=== PATIENT | male | born 1950 | race Caucasian/White ===

== ENCOUNTER 2016-06-17 16:31 | Emergency (ER) | payer OTHER ==
[2016-06-17 16:39] VITALS: BP 133/81; PULSE 78; TEMP 98.3; BMI 22.7
--- NOTE | 2016-06-17 16:44 | PDOC ---
History of Present Illness - General History Source: Patient Exam Limitations: No Limitations - History of Present Illness Initial Comments: 06/17/16 16:46 Patient is a 65 year old male with a significant past medical history of Parkinsons disease, hypertension and hyperlipidemia who presents to the ED with a left toe pain approximately 2 hours ago. Patient states that he dropped a drawer on his left foot and reports left 3rd digit pain and bruising. Patient notes that he is able to ambulate barefoot without any pain, but when he wears a shoe he experiences pain. He states that he took 2 advil to alleviate the pain. He denies any recent fall or trauma. PSH - none Allergy - none <Maria Victoria Mirza - Last Filed: 06/17/16 16:53> - General History Source: Patient Exam Limitations: No Limitations <Lilly Hurtado - Last Filed: 06/17/16 17:30> - General Chief Complaint: Injury Stated Complaint: INJURY TO LEFT 3 RD TOE Time Seen by Provider: 06/17/16 16:41 Past History <Maria Victoria Mirza - Last Filed: 06/17/16 16:53> - Past Medical History Cardiac Disorders: Yes (MVP/ARRYTHMIA) Hypercholesterolemia: Yes - Psycho/Social/Smoking Cessation Hx Anxiety: No Suicidal Ideation: No Smoking History: Former smoker Have you smoked in the past 12 months: No If you are a former smoker, when did you quit?: 1973 Information on smoking cessation initiated: No Hx Alcohol Use: No Drug/Substance Use Hx: No Substance Use Type: None <Lilly Hurtado - Last Filed: 06/17/16 17:30> - Past Medical History Allergies/Adverse Reactions: Allergies Allergy/AdvReac Type Severity Reaction Status Date / Time No Known Allergies Allergy Verified 06/17/16 16:33 Home Medications: Ambulatory Orders Aspirin [ASA -] 81 mg PO DAILY 06/17/16 Atorvastatin Ca [Lipitor] 20 mg PO HS 06/17/16 Metoprolol Tartrate 50 mg PO DAILY 06/17/16 Rasagiline Mesylate 1 mg PO DAILY 06/17/16 Review of Systems - Review of Systems Able to Perform ROS?: Yes Comments:: 06/17/16 16:53 GENERAL/CONSTITUTIONAL: No: fever, chills, weakness, loss of appetite. HEAD, EYES, EARS, NOSE AND THROAT: No: change in vision, ear pain, discharge, sore throat, throat swelling. CARDIOVASCULAR: No: chest pain, lightheadedness, palpitations, syncope RESPIRATORY: No: cough, shortness of breath, wheezing, hemoptysis, stridor. GASTROINTESTINAL: No: nausea, vomiting, abdominal cramping, diarrhea, rectal bleeding, constipation. GENITOURINARY: No: dysuria, hematuria, frequency, urgency, flank pain. MUSCULOSKELETAL: +left 3rd digit bruising No: back pain, neck pain, joint pain, muscle swelling or pain SKIN: No: lesions, pallor, rash or easy bruising. NEUROLOGIC: No: headache, vertigo, paresthesias, weakness ENDOCRINE: No: unexplained weight gain or loss HEMATOLOGIC/LYMPHATIC: No: anemia, easy bleeding, swelling nodes <Maria Victoria Mirza - Last Filed: 06/17/16 16:53> *Physical Exam - Vital Signs Last Vital Signs Temp Pulse Resp BP Pulse Ox 98.3 F 78 18 133/81 98 06/17/16 16:32 06/17/16 16:32 06/17/16 16:32 06/17/16 16:32 06/17/16 16:32 - Physical Exam Comments: 06/17/16 16:54 GENERAL: The patient is in no acute distress. HEAD: Normal with no signs of trauma. EYES: PERRLA, EOMI, sclera anicteric, conjunctiva clear. ENT: Ears normal, nares patent, oropharynx clear without exudates. Moist mucous membranes. NECK: Normal range of motion, supple without lymphadenopathy, JVD, or masses. LUNGS: Breath sounds equal, clear to auscultation bilaterally. No wheezes, and no crackles. HEART:Regular rate and rhythm, normal S1 and S2 without murmur, rub or gallop. ABDOMEN: Soft, nontender, normoactive bowel sounds. No guarding, no rebound. EXTREMITIES: +left third digit bruising and swelling. Normal range of motion. No clubbing or cyanosis. No erythema, or tenderness. NEUROLOGICAL: Cranial nerves II through XII grossly intact. Normal speech. No focal neurological deficits. MUSCULOSKELETAL: Back nontender to palpation, no CVA tenderness SKIN: Warm, Dry, normal turgor, no rashes or lesions noted. <Maria Victoria Mirza - Last Filed: 06/17/16 16:53> - Vital Signs Last Vital Signs Temp Pulse Resp BP Pulse Ox 98.3 F 78 18 133/81 98 06/17/16 16:32 06/17/16 16:32 06/17/16 16:32 06/17/16 16:32 06/17/16 16:32 <Lilly Hurtado - Last Filed: 06/17/16 17:30> Medical Decision Making - Medical Decision Making 06/17/16 16:41 A portion of this note was documented by scribe services under my direction. I have reviewed the details of the note, within reason, and agree with the documentation with the following case summary and management plan written by me. Nursing documentation reviewed and incorporated into medical decision making 65 yo M h/o Parkinson's disease, HTN HLD presenting to the ER with a complaint of trauma to his left middle toe He dropped a cabinet on his toe Took Motrin Presented to the ER due to concerns about a fracture Will do x ray Pt states he does not need any additional medications for pain 06/17/16 17:27 Xray: distal tuft fracture Will ce tape Will place in hard sole shoe Follow up with ortho PRN <Lilly Hurtado - Last Filed: 06/17/16 17:30> *DC/Admit/Observation/Transfer - Attestations Scribe Attestion: 06/17/16 16:55 Documentation prepared by KIRILL Davila, acting as phlebotomist medical lab assistant for Lilly Hurtado MD. <Maria Victoria Mirza - Last Filed: 06/17/16 16:53> - Discharge Dispostion Admit: No <Lilly Hurtado - Last Filed: 06/17/16 17:30> Diagnosis at time of Disposition: Fracture of phalanx of toe of left foot Qualifiers: Encounter type: initial encounter Toe: lesser toe Fracture type: closed Phalanx : distal Fracture alignment: nondisplaced Qualified Code(s): S92.535A - Nondisplaced fracture of distal phalanx of left lesser toe(s), initial encounter for closed fracture - Discharge Dispostion Disposition: HOME Condition at time of disposition: Stable - Referrals Referrals: Curry Wang MD [Staff Physician] - - Patient Instructions Printed Discharge Instructions: DI for Toe Fracture Additional Instructions: Thank you for coming in to the ER please wear a hard sole shoe as is tolerable for you please ce take injured toe to the toe next to it Return to the ER for any other concerns or complaints
== END 2016-06-17 17:55 | disposition home or self-care (01) ==
LOC: FER 16:31
PROC: 2W3TXYZ Immobilization of Left Foot using Other Device (ICD-10-PCS; principal; 2016-06-17)
DX: S92.535A Nondisplaced fracture of distal phalanx of left lesser toe(s), initial encounter for closed fracture (principal); W20.8XXA Other cause of strike by thrown, projected or falling object, initial encounter; Y93.9 Activity, unspecified; Y92.9 Unspecified place or not applicable; I08.8 Other rheumatic multiple valve diseases; Z87.891 Personal history of nicotine dependence; Z79.82 Long term (current) use of aspirin
CPT/HCPCS: 29550; 73660-TC; 99281-25

== ENCOUNTER 2017-10-23 09:36 | Emergency (ER) | payer OTHER ==
--- NOTE | 2017-10-23 09:38 | PDOC ---
History of Present Illness - General Chief Complaint: Back Pain Stated Complaint: SCIATICA Time Seen by Provider: 10/23/17 09:38 History Source: Patient Exam Limitations: No Limitations - History of Present Illness Initial Comments: 10/23/17 09:53 67 year old male with PMH parkinsons disease, HTN, HLD, sciatica, arrythmia, prolpased valve presenting to ED for right leg pain x1 week. He states that a week ago he woke up with this pain, that feels similar to his sciatica pain, but more intense. He denies heavy lifting, fall, injury. He states the pain is currently located to his right lateral thigh and right anterior lower leg. He describes the pain as intermittent, alleviated by ice packs/rest, alleviated by Tylenol with Codeine and Advil, aggravated by movement, described as sharp, radiating to his right foot. He denies fever, chills, nausea, vomiting, abdominal pain, diarrhea, blood in stool, chest pain, shortness of breath, weakness, numbness, tingling, bowel or bladder incontinence. Pt states he took 2 over the counter advil and tylenol with codeie today around 0800. Pt states he sits in a chair all day at a computer. PCP - Dr. Trinidad Allergies - NKDA Past History - Past Medical History Allergies/Adverse Reactions: Allergies Allergy/AdvReac Type Severity Reaction Status Date / Time No Known Allergies Allergy Verified 10/23/17 09:38 Home Medications: Ambulatory Orders Aspirin [ASA -] 81 mg PO DAILY 06/17/16 Atorvastatin Ca [Lipitor] 20 mg PO HS 06/17/16 Acetaminophen W/ Codeine #3 [Tylenol # 3 -] 0.5 tab PO ONCE 10/23/17 Carbidopa/Levodopa [Carbidopa-Levodopa 25-100 Tab] 0.5 tab PO TID 10/23/17 Carbidopa/Levodopa [Sinemet Cr 25-100 Tablet] 1 each PO TID 10/23/17 Cyclobenzaprine HCl [Flexeril 10 mg] 10 mg PO TID #15 tablet 10/23/17 Ibuprofen 800 mg PO TID #15 tablet 10/23/17 Ibuprofen [Advil -] 400 mg PO TID PRN 10/23/17 Isradipine 2.5 mg PO BID 10/23/17 Metoprolol Succinate [Toprol Xl] 50 mg PO DAILY 10/23/17 Cardiac Disorders: Yes (MVP/ARRYTHMIA) Hypercholesterolemia: Yes - Suicide/Smoking/Psychosocial Hx Smoking History: Former smoker Have you smoked in the past 12 months: No If you are a former smoker, when did you quit?: 1973 Hx Alcohol Use: No Drug/Substance Use Hx: No Substance Use Type: None Review of Systems - Review of Systems Able to Perform ROS?: Yes Comments:: 10/23/17 09:57 General: denies fever, chills, night sweats, generalized weakness. HEENT: denies sore throat, rhinorrhea, ear pain. Heart: denies chest pain, palpitations, syncope, lower extremity swelling, diaphoresis. Respiratory: denies shortness of breath, cough, sputum production, hematemesis. Abdomen: denies abdominal pain, nausea, vomiting, diarrhea, constipation, blood in stool, bowel incontinence. : denies dysuria, increased urinary frequency, hematuria, urinary incontinence , flank pain. Musculoskeletal: admits to right lateral thigh pain and right anterior lower leg pain. Neurological: denies headache, dizziness, numbness, tingling, weakness. Skin: denies rash, laceration, abrasion. *Physical Exam - Physical Exam Comments: 10/23/17 09:58 Appearance: comfortable. HEENT: head is normocephalic, atraumatic. EOMI. PERRLA. Neck: supple. Full ROM. Heart: regular rhythm. murmur noted. Lungs: clear to auscultation bilaterally. no crackles, rhonchi or wheezing. no stridor. Abdomen: soft, nontender. normal bowel sounds. no rebound, guarding, masses. Rectal examination: no external hemorroids visualized. good rectal tone. Back: no c-spine mindline tenderness to palpation. no t-spine mindline tenderness to palpation. no L-spine mindline tenderness to palpation. no low back tenderness to palpation bilaterally. no step offs. straight leg testing negative bilaterally. Extremities: no tenderness to palpation of right lateral thigh, right anterior corbett. no swelling to right lower extremity. Peripheral pulses intact and equal. No lower extremity pitting edema. Neurological: Alert. Oriented x3. CN2-12 intact. 5/5 strength all extremities. Full sensation all extremities and bilateral face. Gait normal. Resting tremor to right upper extremity. Medical Decision Making - Medical Decision Making 10/23/17 10:58 67 year old male with PMH parkinsons, HTN, HLD, valve prolapse, cardiac arrythmia presenting to ED for right lateral thigh pain and right anterior lower leg pain x1 week. Initial Vital Signs Temp Pulse Resp BP Pulse Ox 98.4 F 57 L 16 154/93 99 10/23/17 09:38 10/23/17 09:38 10/23/17 09:38 10/23/17 09:38 10/23/17 09:38 Afebrile. Toradol ordered. 10/23/17 11:27 Pt endorsing continued pain. Flexeril ordered. I spoke with the patient and his about the plan for care, with which they agree. Pt will be discharged with follow up instructions, orthopedic referral, prescriptions for Flexeril and Ibuprofen, as well as strict return precautions. 10/23/17 12:01 Upon discharge, pt endoursed increased pain. Ativan ordered. Will reassess. 10/23/17 12:41 Pt reported improved pain and stated he would like to go home. Pt left the department and is discharged. *DC/Admit/Observation/Transfer Diagnosis at time of Disposition: Leg pain - Discharge Dispostion Disposition: HOME Condition at time of disposition: Good Decision to Admit order: No - Prescriptions Prescriptions: Cyclobenzaprine HCl [Flexeril 10 mg] 10 mg PO TID #15 tablet Ibuprofen 800 mg PO TID #15 tablet - Referrals Referrals: Leola Freire MD [Primary Care Provider] - Curry Wang MD [Staff Physician] - - Patient Instructions Printed Discharge Instructions: DI for Sciatica Additional Instructions: You were seen today for your leg pain. You were given intra-muscular Toradol (an anti-inflammatory). You were given Flexeril (a muscle relaxant). I have sent a prescription for Flexeril and Ibuprofen to your pharmacy. Take both prescriptions as directed. You can add Tylenol for pain. Do not take ibuprofen and naproxen (Advil) at the same time. Drink lots of clear fluids, like water, to stay hydrated. I have provided you with a referral for an orthopedic doctor, Dr. Wang. Follow up within 5 days. Call the office today and request an appointment for as soon as they have available. Mention to them you were seen in the Emergency Department and referred to them. Follow up with your primary care doctor within 5 days, call their office today and request an appointment for as soon as they have available. Mention to them you were seen in the Emergency Department. Return to the Emergency Department for increasing pain, feeling like you may pass out, passing out, abdominal pain, blood in stool, blood in urine, numbness , weakness, chest pain, shortness of breath, palpitations, burning with urination, fever or any other new, worsening or concerning symptoms. - Post Discharge Activity
--- NOTE | 2017-10-23 09:45 | PDOC ---
Attending Attestation - Resident Resident Name: BrionnaCarmina - ED Attending Attestation I have performed the following: I have examined & evaluated the patient, The case was reviewed & discussed with the resident, I agree w/resident's findings & plan, Exceptions are as noted - HPI HPI: 10/23/17 10:39 Patient has a flareup of his sciatica, which occurs frequently, but this time is more persistent. No back pain but shooting pain radiating to the right buttock, lateral thigh and calf, and lateral foot. Urinating normally, chronic constipation from Parkinson's, and no change in his bowel or bladder function with this flareup. 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 This may be the aggravating factor. He has been taking 2 [id number] Advil without relief. Also Tylenol No. 3 occasionally with minimal effect. - Physicial Exam PE: 10/23/17 10:41 Physical exam shows resting tremor, mild muscular rigidity, and shuffling gait associated with Parkinson's. There are no acute sensory or motor deficits to the right lower extremity, and straight leg raising is negative. Pulses are full. Femoral artery with symmetric pulses and no bruits. Abdominal exam benign. No hernias. No saddle anesthesia and adequate rectal tone. 10/23/17 10:42 - Medical Decision Making 10/23/17 10:43 Impression: Exacerbation of chronic intermittent sciatica, probably from prolonged sitting. No suggestion of cauda equina syndrome or vascular disease Plan: Symptomatic treatment and orthopedic referral if no improvement. Heat, massage, and to avoid sitting until pain resolves. Adequately ambulatory with upon discharge to follow-up as recommended
[2017-10-23 10:01] VITALS: BP 154/93; PULSE 57; TEMP 98.4; BMI 22.7
[2017-10-23] MEDS ORDERED: KETOROLAC TROMETHAMINE 30 MG/1 ML VIAL IM ONE (10:48)
[2017-10-23] MEDS ORDERED: KETOROLAC TROMETHAMINE 30 MG/1 ML VIAL ONE (10:49)
[2017-10-23] MEDS ORDERED: CYCLOBENZAPRINE HCL 10 MG TABLET (FP) PO ONE (11:21)
[2017-10-23] MEDS ORDERED: CYCLOBENZAPRINE HCL 10 MG TABLET (FP) ONE (11:22)
[2017-10-23] MEDS ORDERED: LORazepam 1 MG TABLET PO ONE (12:00)
[2017-10-23] MEDS ORDERED: LORazepam 0.5 MG TABLET ONE (12:03)
== END 2017-10-23 12:12 | disposition home or self-care (01) ==
LOC: FER 09:36
PROC: 3E0233Z Introduction of Anti-inflammatory into Muscle, Percutaneous Approach (ICD-10-PCS; principal; 2017-10-23)
DX: M79.604 Pain in right leg (principal); Z87.891 Personal history of nicotine dependence; I49.9 Cardiac arrhythmia, unspecified; G20 Parkinson's disease; E78.5 Hyperlipidemia, unspecified
CPT/HCPCS: 99282-25

== ENCOUNTER 2021-04-02 10:58 | Emergency (ER) | payer OTHER ==
[2021-04-02] MEDS ORDERED: LIDOCAINE 5% TOPICAL PATCH TP ONE (11:30)
[2021-04-02] MEDS ORDERED: ACETAMINOPHEN 500 MG TABLET (FP) PO ONE (11:30)
[2021-04-02] MEDS ORDERED: METHOCARBAMOL 750 MG TABLET PO ONE (11:31)
[2021-04-02] MEDS ORDERED: ACETAMINOPHEN 325 MG TABLET (FP) ONE (11:40)
[2021-04-02] MEDS ORDERED: METHOCARBAMOL 500 MG TABLET ONE (11:41)
[2021-04-02] MEDS ORDERED: LIDOCAINE 5% TOPICAL PATCH ONE (11:41)
[2021-04-02] MEDS ORDERED: KETOROLAC TROMETHAMINE 30 MG/1 ML VIAL IM ONE (13:43)
[2021-04-02] MEDS ORDERED: KETOROLAC TROMETHAMINE 30 MG/1 ML VIAL ONE (13:48)
[2021-04-02 13:59] VITALS: BP 167/91; PULSE 64; TEMP 98.4; BMI 19.5
[2021-04-02] MEDS ORDERED: LIDOCAINE PATCH REMOVAL MC SCH (22:00)
== END 2021-04-02 14:00 | disposition home or self-care (01) ==
LOC: FER 10:58
PROC: 3E0233Z Introduction of Anti-inflammatory into Muscle, Percutaneous Approach (ICD-10-PCS; principal; 2021-04-02)
DX: M54.42 Lumbago with sciatica, left side (principal)
CPT/HCPCS: 99284-25

== ENCOUNTER 2021-07-10 12:20 | Observation (INO) | payer OTHER ==
[2021-07-10] MEDS ORDERED: IBUPROFEN 600 MG TABLET (FP) PO ONE ×4 (12:53→19:33)
[2021-07-10 13:12] LABS: INR 1.17 (0.83-1.09); PROTHROMBIN TIME (PATIENT) 13.5 SEC (9.7-13.0)
[2021-07-10 13:15] LABS: ACTIVATED PTT 30.7 SECONDS (25.2-36.5)
[2021-07-10 13:33] LABS: HEMATOCRIT 42.9 % (35.4-49); HEMOGLOBIN 14.8 G/dL (11.7-16.9); MCH 31.5 pg (25.7-33.7); MCHC 34.4 g/dl (32.0-35.9); MEAN CELL VOLUME 91.5 fl (80-96); MEAN PLT VOLUME 7.8 fl (7.5-11.1); PLATELET COUNT 184.6 10^3/uL (134-434); RBC 4.69 10^6/uL (4.00-5.60); RDW 14.1 % (11.9-15.9); WHITE BLOOD COUNT 10.9 10^3/uL (4.0-10.8)
[2021-07-10 13:52] LABS: BILIRUBIN,TOTAL 3.6 mg/dl (0.2-1); CALCIUM 8.9 mg/dl (8.5-10); CREATININE 0.8 mg/dl (0.55-1.3); MAGNESIUM 1.9 mg/dL (1.8-2.4); TOT PROT 6.7 g/dl (6.4-8.2)
[2021-07-10 14:29] LABS: ERYTHROCYTE SEDIMENTATION RATE 12 mm/hr (0-20)
[2021-07-10 16:10] LABS: URINE MUCUS 1+
[2021-07-10 17:26] LABS: BILIRUBIN,DIRECT 0.6 mg/dL (0.0-0.2)
[2021-07-10 22:48] VITALS: BMI 20.3
[2021-07-10] MEDS ORDERED: clonazePAM 0.5 MG TABLET GT ONE (23:19)
[2021-07-11] MEDS ORDERED: IBUPROFEN 600 MG TABLET (FP) PO PRN (05:57)
[2021-07-11 08:10] LABS: HEMATOCRIT 42.5 % (35.4-49); HEMOGLOBIN 14.7 G/dL (11.7-16.9); MCH 31.5 pg (25.7-33.7); MCHC 34.5 g/dl (32.0-35.9); MEAN CELL VOLUME 91.3 fl (80-96); MEAN PLT VOLUME 7.9 fl (7.5-11.1); PLATELET COUNT 192.9 10^3/uL (134-434); RBC 4.66 10^6/uL (4.00-5.60); RDW 14.1 % (11.9-15.9)
[2021-07-11 08:16] LABS: ALBUMIN 3.6 g/dl (3.4-5.0); BILIRUBIN,TOTAL 2.8 mg/dl (0.2-1); CALCIUM 8.9 mg/dl (8.5-10); CREATININE 0.8 mg/dl (0.55-1.3); TOT PROT 6.1 g/dl (6.4-8.2)
[2021-07-11 08:51] LABS: N-TERMINAL BNP 179.2 pg/ml (5-125)
[2021-07-11] MEDS: FAMOTIDINE 20 MG TABLET PO SCH ×2 (09:31→09:35)
[2021-07-11] MEDS ORDERED: REGADENOSON 0.4 MG/5 ML PRE-FILLED SYRINGE IVPUSH ONE ×2 (09:34→10:00)
[2021-07-11 09:38] LABS: N-TERMINAL BNP 179.22 pg/ml (5-125)
[2021-07-11] MEDS ORDERED: LOSARTAN POTASSIUM 50 MG TABLET PO SCH (10:00)
[2021-07-11] MEDS ORDERED: CARBIDOPA/LEVODOPA 25/100 TABLET (FP) PO ONE (10:30)
[2021-07-11] MEDS ORDERED: POTASSIUM CHLORIDE TABS 20 MEQ TABLET.ER (FP) PO ONE (11:30)
[2021-07-11] MEDS ORDERED: CARBIDOPA/LEVODOPA 25/100 TABLET (FP) PO SCH (14:00)
[2021-07-11 14:49] VITALS: BP 127/74; PULSE 86; TEMP 97.4
[2021-07-11] MEDS ORDERED: ATORVASTATIN CA 20 MG TABLET (FP) PO SCH (22:00)
== END 2021-07-11 16:21 | disposition home or self-care (01) ==
LOC: FER 12:20 → FM/S 16:08
PROVIDERS: ADMIT Internal Medicine; ATTEND Nurse Practitioner Acute Care
PROC: 3E033GC Introduction of Other Therapeutic Substance into Peripheral Vein, Percutaneous Approach (ICD-10-PCS; principal; 2021-07-10)
DX: M54.30 Sciatica, unspecified side (principal); G20 Parkinson's disease; M54.50 Low back pain, unspecified; I49.9 Cardiac arrhythmia, unspecified; R94.5 Abnormal results of liver function studies; I34.1 Nonrheumatic mitral (valve) prolapse; E78.5 Hyperlipidemia, unspecified; I10 Essential (primary) hypertension; R07.9 Chest pain, unspecified; E80.6 Other disorders of bilirubin metabolism; M79.606 Pain in leg, unspecified; Z20.822 Contact with and (suspected) exposure to COVID-19; Z87.891 Personal history of nicotine dependence
CPT/HCPCS: 36415; 71045-TC-FY; 76705-TC; 78452-TC; 80053; 80061; 81003; 81015; 82248; 82550; 83036; 83690; 83735; 83880; 84443; 84484; 85025; 85027; 85610; 85651; 85730; 86140; 93005; 93017; 93306-TC; 96374; 99285-25; A9502; C9803-CS; G0378; J2785; U0003; U0005